=== PATIENT | male | born 1965 | race Two or more races ===

== ENCOUNTER 2022-09-24 21:24 | Emergency (ER) | payer OTHER ==
[~2022-09-24] VITALS: Ht 177.8 cm; Wt 81.6 kg
[2022-09-24] MEDS ORDERED: GLUMETZA500 MG PO (21:33)
[2022-09-24] MEDS ORDERED: GABAPENTIN400 MG PO (21:33)
[2022-09-24] MEDS ORDERED: RESTORIL30 M1 (21:34)
[2022-09-24] MEDS ORDERED: LIPITOR20 MG PO (21:34)
[2022-09-24] MEDS ORDERED: COZAAR100 MG (21:34)
[2022-09-24] MEDS ORDERED: AMLODIPINE-OLM1 EAC2 PO (21:34)
[2022-09-24] MEDS ORDERED: TENORMIN25 MG PO (21:34)
[2022-09-24] MEDS ORDERED: ZOLOFT20 MG/1 ML PO (21:35)
== END 2022-09-25 09:45 | disposition home or self-care (01) ==
LOC: ER 21:24
DX: N39.0 Urinary tract infection, site not specified (principal); K42.9 Umbilical hernia without obstruction or gangrene; K57.30 Diverticulosis of large intestine without perforation or abscess without bleeding; F32.89 Other specified depressive episodes; E11.22 Type 2 diabetes mellitus with diabetic chronic kidney disease; I12.9 Hypertensive chronic kidney disease with stage 1 through stage 4 chronic kidney disease, or unspecified chronic kidney disease; N18.9 Chronic kidney disease, unspecified; Z79.84 Long term (current) use of oral hypoglycemic drugs; E78.49 Other hyperlipidemia
CPT/HCPCS: 36415; 74177; 96365; 96366; 96372; 99284; J0744; J1885; J3490; J7042; Q9965